=== PATIENT | male | born 1965 | race Caucasian/White ===

== ENCOUNTER 2018-10-03 10:00 | Emergency (ER) | payer BC, OTHER, SELFPAY ==
[2018-10-03 10:01] VITALS: BP 140/90; PULSE 92; RESP 18; TEMP 37; O2SAT 98; BMI 30.5
--- NOTE | 2018-10-03 10:09 | ED.RN ---
RT ARM/HAND SWELLING. RT FINGERS REDDISH PURPLE IN COLOR. PT STATES IT IS PAINFUL.
--- NOTE | 2018-10-03 10:32 | ED.VIS.GEN ---
History of Present Illness Chief Complaint: Edema Informant: Patient Onset: Weeks - 1 week of arm swelling and discoloration that is worse as the day goes on. He had a venous duplex study obtained through the OR 1 week ago that was negative. Context: Sudden Onset Timing: Continuous, Waxes and wanes Quality: Discoloration and swelling right upper extremity Location: Right upper extremity and right shoulder/chest Current Severity: Moderate Worsened by: With standing and as the day progresses Relieved by: Improves after lying flat in bed Associated Symptoms: Right sided chest discomfort Narrative: Patient is a middle-aged male who is right-hand dominant presents with swelling discoloration right upper extremity. He was seen at the OR and had an outpatient ultrasound that was interpreted by radiologist as negative. This was performed at the [facility]. He has history of thoracic outlet syndrome. He states his first right rib was removed. He denies night sweats or weight loss. He does have a history of DVT at the age of 15. The etiology of his DVT is unknown. He states the DVT was in his neck. He denies pleuritic pain, shortness of breath, dyspnea on exertion, orthopnea or PND. He denies leg pain, swelling discoloration. Prior similar symptoms: Yes Recent Illness/Hospitalization: Yes - Past Medical History (1) History of DVT (deep vein thrombosis) Status: Acute (2) History of thoracic outlet syndrome Status: Acute Past Medical History - Allergies and Home Meds Allergies/Adverse Reactions: Allergies Iodinated Contrast- Oral and IV Dye [CONTRASTS] Allergy (Verified 10/03/18 10:03) Shortness of breath Doctors: [facility] Surgical History: - - Removal first right rib Lives: Alone Smoking Status: Former smoker Drugs: None Review of Systems General: Denies: Chills, Fever, Sweats Eyes: Denies: Visual changes - bilaterally, Blurred Vision - bilaterally, Diplopia ENT: Denies: Rhinorrhea, Sore throat Cardiovascular: Denies: Chest pain, Palpitations, Heart racing Respiratory: Denies: Dyspnea, Cough, Sputum, Dyspnea on exertion, Orthopnea, Paroxysmal nocturnal dyspnea Gastrointestinal: Denies: Abdominal pain, Nausea, Vomiting, Diarrhea, Melena, Hematochezia Genitourinary: Denies: Dysuria, Hematuria, Frequency Musculoskeletal: Reports: Swelling. Denies: Myalgias, Arthralgias, Neck pain, Back pain, Extremity Pain Skin: Denies: Rash, Wounds Neurological: Denies: Headache, Weakness, Parasthesia, Numbness, -, - Hematologic: Denies: Easy bruising, Easy bleeding, Lymphadenopathy, -, - Allergy: Denies: Uticaria, Swelling of the mouth, Swelling of the tongue, -, - Physical Exam Vital Signs/Narrative: Vital Signs Temp Pulse Resp BP Pulse Ox 10/03/18 10:01 98.6 F 92 18 140/90 H 98 Inital Vital Signs reviewed: Yes General: Well nourished, Well developed, No Acute Distress Head: Normocephalic, Atraumatic Eyes: Perrl, EOMI ENT: Moist mucous membranes, No rhinorrhea Neck: Supple, Nontender Cardiovascular: Regular rate, Regular rhythm, No murmurs Respiratory: No distress, CTA bilaterally, Chest nontender Abdomen: Soft, Nontender, Nondistended, Normal bowel sounds Back: Nontender, Normal Inspection Extremities: Nontender, No edema, - - The right upper extremity is larger than the left. There is discoloration. There are prominent veins noted anterior right shoulder and chest. Radial pulses palpable. Median, radial, ulnar nerve function intact. Skin: Normal color, No rash Neurological: Alert, Oriented x3, Cranial nerves II-XII grossly intact, Normal Strength, Normal Sensation Psychological: Normal affect, Normal Mood Diagnostic/Tx/Re-eval Chest X-Ray - ED: 2 View, Read by ED Physician, Normal, Heart, Lungs, Mediastinum, Bony Structures, No Acute Disease Impressions Chest X-Ray 10/03/18 10:36 IMPRESSION: Mild hyperexpansion with healed granulomatous calcifications. No acute finding. Electronically Signed: Mario Alberto Garcia MD at 10:54 EDT , Service support , 10/03/18 10:36 Chest PA and Lateral [RAD] Stat Laboratory Results 10/03/18 10/03/18 10/03/18 10:30 10:30 10:30 WBC 6.9 RBC 4.91 Hgb 14.4 Hct 42.1 MCV 85.7 MCH 29.3 MCHC 34.2 RDW 13.2 RDW Differential 41.3 Plt Count 154 MPV 9.9 Immature Gran % (Auto) 0.000 Neut % (Auto) 63.8 Lymph % (Auto) 21.9 [place] % (Auto) 12.1 H Eos % (Auto) 1.9 Baso % (Auto) 0.3 Absolute Neuts (auto) 4.4 Absolute Lymphs (auto) 1.50 Total Counted Not Reportable D-Dimer Quant (PE/DVT) 0.96 H* Sodium 142 Potassium 4.2 Chloride 108 H Carbon Dioxide 30.0 Anion Gap 4 L BUN 18 Creatinine 1.38 H Estim Creat Clear Calc 67.95 Est GFR (MDRD) Af Amer 69 Est GFR (MDRD) Non-Af 57 L BUN/Creatinine Ratio 13.0 Glucose 101 Calcium 8.7 Total Bilirubin 0.60 AST 17 ALT 36 Alkaline Phosphatase 75 Troponin I < 0.015 Total Protein 7.2 Albumin 3.5 Globulin 3.7 Albumin/Globulin Ratio 0.9 Venous duplex of the right upper extremity reveals patient was informed that there is a clot and he would require treatment. He was informed there are 3 options Coumadin with Lovenox, Xarelto and Eliquis. After explaining risk benefits of the medications he chose Eliquis. He will receive his first dose in the emerge department. He is aware that all of them are associated with increased bleeding. He is aware that they all have reversing agents. - Medical Decision Making With prominent veins swelling discoloration right upper extremity will need to entertain possibility of clot. Will obtain basic medical panel to assess renal function. CBC to assess white count and H&H. D-dimer was obtained. This was obtained since he had an ultrasound 1 week ago that was interpreted as negative. Since there is no swelling of the neck doubt superior vena cava syndrome. Because he reports chest pain chest x-ray was obtained to assess for mass. Venous duplex study positive for right subclavian vein clots. Will treat with Eliquis. ED Disposition - Plan for ED Patient: Disposition: Home or Assisted Living Diagnosis: DVT (deep venous thrombosis) Instructions: ED DVT Prescriptions: Apixaban [Eliquis] 5 mg PO BID #[id number] tab Referrals: Carloz Alcantara [Primary Care Provider] - 1 Week
--- NOTE | 2018-10-03 10:36 | ED.DCSUM_ITS ---
History of Present Illness Chief Complaint: Edema Informant: Patient Onset: Weeks - 1 week of arm swelling and discoloration that is worse as the day goes on. He had a venous duplex study obtained through the [facility] 1 week ago that was negative. Context: Sudden Onset Timing: Continuous, Waxes and wanes Quality: Discoloration and swelling right upper extremity Location: Right upper extremity and right shoulder/chest Current Severity: Moderate Worsened by: With standing and as the day progresses Relieved by: Improves after lying flat in bed Associated Symptoms: Right sided chest discomfort Narrative: Patient is a middle-aged male who is right-hand dominant presents with swelling discoloration right upper extremity. He was seen at the [facility] and had an outpatient ultrasound that was interpreted by radiologist as negative. This was performed at the [facility]. He has history of thoracic outlet syndrome. He states his first right rib was removed. He denies night sweats or weight loss. He does have a history of DVT at the age of 15. The etiology of his DVT is unknown. He states the DVT was in his neck. He denies pleuritic pain, shortness of breath, dyspnea on exertion, orthopnea or PND. He denies leg pain, swelling discoloration. Prior similar symptoms: Yes Recent Illness/Hospitalization: Yes - Past Medical History (1) History of DVT (deep vein thrombosis) Status: Acute (2) History of thoracic outlet syndrome Status: Acute Past Medical History - Allergies and Home Meds Allergies/Adverse Reactions: Allergies Iodinated Contrast- Oral and IV Dye [CONTRASTS] Allergy (Verified 10/03/18 10:03) Shortness of breath Doctors: [facility] Surgical History: - - Removal first right rib Lives: Alone Smoking Status: Former smoker Drugs: None Review of Systems General: Denies: Chills, Fever, Sweats Eyes: Denies: Visual changes - bilaterally, Blurred Vision - bilaterally, Diplopia ENT: Denies: Rhinorrhea, Sore throat Cardiovascular: Denies: Chest pain, Palpitations, Heart racing Respiratory: Denies: Dyspnea, Cough, Sputum, Dyspnea on exertion, Orthopnea, Paroxysmal nocturnal dyspnea Gastrointestinal: Denies: Abdominal pain, Nausea, Vomiting, Diarrhea, Melena, Hematochezia Genitourinary: Denies: Dysuria, Hematuria, Frequency Musculoskeletal: Reports: Swelling. Denies: Myalgias, Arthralgias, Neck pain, Back pain, Extremity Pain Skin: Denies: Rash, Wounds Neurological: Denies: Headache, Weakness, Parasthesia, Numbness, -, - Hematologic: Denies: Easy bruising, Easy bleeding, Lymphadenopathy, -, - Allergy: Denies: Uticaria, Swelling of the mouth, Swelling of the tongue, -, - Physical Exam Vital Signs/Narrative: Vital Signs Temp Pulse Resp BP Pulse Ox 10/03/18 10:01 98.6 F 92 18 140/90 H 98 Inital Vital Signs reviewed: Yes General: Well nourished, Well developed, No Acute Distress Head: Normocephalic, Atraumatic Eyes: Perrl, EOMI ENT: Moist mucous membranes, No rhinorrhea Neck: Supple, Nontender Cardiovascular: Regular rate, Regular rhythm, No murmurs Respiratory: No distress, CTA bilaterally, Chest nontender Abdomen: Soft, Nontender, Nondistended, Normal bowel sounds Back: Nontender, Normal Inspection Extremities: Nontender, No edema, - - The right upper extremity is larger than the left. There is discoloration. There are prominent veins noted anterior right shoulder and chest. Radial pulses palpable. Median, radial, ulnar nerve function intact. Skin: Normal color, No rash Neurological: Alert, Oriented x3, Cranial nerves II-XII grossly intact, Normal Strength, Normal Sensation Psychological: Normal affect, Normal Mood Diagnostic/Tx/Re-eval Chest X-Ray - ED: 2 View, Read by ED Physician, Normal, Heart, Lungs, Mediastinum, Bony Structures, No Acute Disease Impressions Chest X-Ray 10/03/18 10:36 IMPRESSION: Mild hyperexpansion with healed granulomatous calcifications. No acute finding. Electronically Signed: Mario Alberto Garcia MD at 10:54 EDT , Service support , 10/03/18 10:36 Chest PA and Lateral [RAD] Stat Laboratory Results 10/03/18 10/03/18 10/03/18 10:30 10:30 10:30 WBC 6.9 RBC 4.91 Hgb 14.4 Hct 42.1 MCV 85.7 MCH 29.3 MCHC 34.2 RDW 13.2 RDW Differential 41.3 Plt Count 154 MPV 9.9 Immature Gran % (Auto) 0.000 Neut % (Auto) 63.8 Lymph % (Auto) 21.9 [place] % (Auto) 12.1 H Eos % (Auto) 1.9 Baso % (Auto) 0.3 Absolute Neuts (auto) 4.4 Absolute Lymphs (auto) 1.50 Total Counted Not Reportable D-Dimer Quant (PE/DVT) 0.96 H* Sodium 142 Potassium 4.2 Chloride 108 H Carbon Dioxide 30.0 Anion Gap 4 L BUN 18 Creatinine 1.38 H Estim Creat Clear Calc 67.95 Est GFR (MDRD) Af Amer 69 Est GFR (MDRD) Non-Af 57 L BUN/Creatinine Ratio 13.0 Glucose 101 Calcium 8.7 Total Bilirubin 0.60 AST 17 ALT 36 Alkaline Phosphatase 75 Troponin I < 0.015 Total Protein 7.2 Albumin 3.5 Globulin 3.7 Albumin/Globulin Ratio 0.9 Venous duplex of the right upper extremity reveals patient was informed that there is a clot and he would require treatment. He was informed there are 3 options Coumadin with Lovenox, Xarelto and Eliquis. After explaining risk benefits of the medications he chose Eliquis. He will receive his first dose in the emerge department. He is aware that all of them are associated with increased bleeding. He is aware that they all have reversing agents. - Medical Decision Making With prominent veins swelling discoloration right upper extremity will need to entertain possibility of clot. Will obtain basic medical panel to assess renal function. CBC to assess white count and H&H. D-dimer was obtained. This was obtained since he had an ultrasound 1 week ago that was interpreted as negative. Since there is no swelling of the neck doubt superior vena cava syndrome. Because he reports chest pain chest x-ray was obtained to assess for mass. Venous duplex study positive for right subclavian vein clots. Will treat with Eliquis. ED Disposition - Plan for ED Patient: Disposition: Home or Assisted Living Diagnosis: DVT (deep venous thrombosis) Instructions: ED DVT Prescriptions: Apixaban [Eliquis] 5 mg PO BID #[id number] tab Referrals: Carloz Alcantara [Primary Care Provider] - 1 Week
--- NOTE | 2018-10-03 10:36 | RAD_ITS ---
STUDY: X-RAY CHEST REASON FOR EXAM: Male, 52 years old. Right arm swelling. Chest pain. TECHNIQUE: Frontal and lateral views of the chest. COMPARISON: None. FINDINGS: The lungs are mildly hyperexpanded. There are healed granulomatous calcifications. There is no demonstrated pleural abnormality. Normal size heart. Normal mediastinum and jessica. Normal visualized pulmonary arteries. Normal visualized aortic arch and descending thoracic aorta. Normal visualized thoracic spine. Normal visualized ribs, clavicles, and shoulders. There is no demonstrated abnormality of the visualized soft tissue structures of the upper abdomen. RAD/Chest PA and Lateral IMPRESSION: Mild hyperexpansion with healed granulomatous calcifications. No acute finding. Electronically Signed: Mario Alberto Garcia MD at 10:54 EDT , Service support ,
[2018-10-03 10:39] LABS: Absolute Neutrophil Count 4.4 X10^3/uL (2.0-7.7); Basophil# 0.02 X10^3/uL; Basophil% 0.3 % (0-1); Eosinophil# 0.13 X10^3/uL; Eosinophils% 1.9 % (0-5); Hematocrit 42.1 % (40-54); Hemoglobin 14.4 g/dl (13.0-16.5); Lymphocyte % 21.9 % (19-41); Mean Corp Hgb Conc 34.2 g/gl (32-36); Mean Corpuscular Hgb 29.3 pg (27.0-32.0); Mean Corpuscular Volume 85.7 fL (80-94); Mean Platelet Vol. 9.9 fl (6.2-12.0); Monocyte# 0.83 X10^3/uL; Monocyte% 12.1 % (0-10); Neutrophil # 4.37 X10^3/uL (2.7-7.7); Neutrophil % 63.8 % (47-70); Platelet Count 154 K/mm3 (150-450); RBC Distribution Width CV 13.2 % (11.6-14.6); RBC Distribution Width SD 41.3 fl (35.1-43.9); Red Blood Count 4.91 M/mm3 (4.6-6.2); White Blood Count 6.9 K/mm3 (4.4-11.0)
[2018-10-03 10:41] LABS: POSITIVE COUNT NO; POSITIVE DIFFERENTIAL NO; POSITIVE MORPHOLOGY NO
[2018-10-03 10:55] LABS: D-Dimer Quantitative (DVT/PE) 0.96 FEU/ug/m (0.27-0.49)
[2018-10-03 10:57] LABS: ALB/GLOB Ratio 0.9 RATIO (0.9-2.4); AST(SGOT) 17 U/L (15-37); Alanine Aminotransfer ALT/SGPT 36 U/L (16-61); Albumin, Serum 3.5 g/dL (3.2-5.0); Alkaline Phosphatase 75 U/L (45-117); Anion Gap 4 (5-15); BUN 18 mg/dL (7-18); Calcium,Total 8.7 mg/dL (8.5-10.1); Chloride 108 mmol/L (98-107); Creatinine, Serum 1.38 mg/dL (0.70-1.30); EST Glomerular Filtration Rate 57 mL/min (>60); Est Glom Filt Rate - Afr Amer 69 mL/min (>60); Estimated Creatinine Clearance 67.95 ml/min; Globulin 3.7 g/dL (2.2-4.2); Glucose 101 mg/dL (74-106); Potassium 4.2 mmol/L (3.5-5.1); Protein, Total 7.2 g/dL (6.4-8.2); Sodium Level 142 mmol/L (136-145)
--- NOTE | 2018-10-03 11:29 | VDUE_ITS ---
Reason For Study: RUE swelling Right Proximal Right jugular vein is spontaneous, widely patent, phasic, with no intraluminal echogenicity noted. Subclavian is non-compressible with intraluminal echoes and diminshed blood flow. Right Lower Arm Right radial vein is compressible. Right ulnar vein is compressible. Right Arm Right axillary vein is spontaneous, patent, phasic, competent, compressible and demonstrates augmentation. Right brachial vein is compressible. Right cephalic vein is compressible. Right basilic vein is compressible. Interpretation Summary Acute deep venous thrombosis right Subclavian vein. Patent and compressible right cephalic and basilic veins. Ordering Physician: Elliot Gonzalez Referring Physician: Carloz Alcantara Performed By: Kelley Waterman RVT ?
[2018-10-03] MEDS: APIXABAN 5 MG TABLET 10 MG PO (13:21)
[2018-10-03 13:22] VITALS: BP 123/91; PULSE 74; RESP 16; O2SAT 98
== END 2018-10-03 13:34 | disposition home or self-care (01) ==
PROVIDERS: Emergency Provider Emergency Medicine
DX: I82.621 Acute embolism and thrombosis of deep veins of right upper extremity (principal); G54.0 Brachial plexus disorders; Z86.718 Personal history of other venous thrombosis and embolism; Z87.891 Personal history of nicotine dependence
CPT/HCPCS: 71046; 80053; 84484; 85025; 85379; 93971; 99283